=== PATIENT | female | born 1985 | race Caucasian/White ===

== ENCOUNTER 2018-12-02 21:02 | Emergency (ER) | payer OTHER ==
[~2018-12-02] VITALS: Ht 162.6 cm; Wt 76.7 kg
[~2018-12-02 21:02] MED LIST: ADDERALL 20 MG20 M1; CELEXA40 MG; CLONAZEPAM 0.50.5 M1 PO; IBUPROFEN 600600 M1 PO; NAPROSYN500 M1 PO; NORCO 5-325 TA1 EACH PO; ROBAXIN 750 MG750 M1 PO; VENTOLIN HFA 1818 GM INH; WELLBUTRIN 75 M75 M1; ZPAK PO
[2018-12-02] MEDS ORDERED: CUBICIN RF500 MG IV (21:11)
[2018-12-02] MEDS ORDERED: WELLBUTRIN 75 M75 M1 PO (21:13)
[2018-12-02] MEDS ORDERED: CLONAZEPAM 1 MG1 M1 PO (21:15)
[2018-12-02 21:40] LABS: ABSOLUTE EOSINOPHILS 0.2 thou/uL (0.0-0.7); ABSOLUTE LYMPHOCYTES 3.6 thou/uL (0.8-5.3); ABSOLUTE MONOCYTES 0.6 thou/uL (0.0-1.2); ABSOLUTE NEUTROPHILS 6.3 thou/uL (1.6-8.1); BASOPHILS 0.3 %; EOSINOPHILS 1.5 %; HEMATOCRIT 38.7 % (37.0-47.0); HEMOGLOBIN 13.3 gm/dL (12.0-15.0); LYMPHOCYTES 33.8 %; MCH 31.6 pg (26.0-34.0); MCHC 34.4 g/dL (28.0-37.0); MCV 91.8 fL (80.0-100.0); MONOCYTES 5.4 %; MPV 6.6 fl. (7.2-11.1); NUCLEATED RBCS 0 /100WBC; PLATELET COUNT* 288 thou/uL (150-400); RBC 4.21 mil/uL (4.20-5.00); RDW-CV 12.4 % (10.5-14.5); WBC 10.6 thou/uL (4.0-11.0)
[2018-12-02 21:49] LABS: INR 1.1; PROTIME 10.8 Seconds (9.20-11.50)
[2018-12-02 21:54] LABS: ANION GAP 8 mmol/L (7-16); BUN 16 mg/dL (7-18); CALCIUM 8.9 mg/dL (8.5-10.1); CHLORIDE 105 mmol/L (98-107); CO2 29 mmol/L (21-32); CREATININE 0.9 mg/dL (0.6-1.3); GLUCOSE 101 mg/dL (70-99); POTASSIUM 4.3 mmol/L (3.5-5.1); SODIUM 142 mmol/L (136-145); TROPONIN-I LEVEL <0.06 ng/mL (<0.06)
[2018-12-02 21:56] LABS: ALBUMIN 3.5 g/dL (3.4-5.0); ALKALINE PHOSPHATASE 81 U/L (46-116); NT-PRO BRAIN NAT PEPTIDE 38 pg/mL (<300); SGOT 12 U/L (15-37); SGPT 18 U/L (30-65); TOTAL BILIRUBIN 0.3 mg/dL (<0.1-1.0); TOTAL PROTEIN 7.3 g/dL (6.4-8.2)
[2018-12-02 23:06] LABS: URINE BILIRUBIN NEGATIVE (Negative); URINE BLOOD NEGATIVE (Negative); URINE CLARITY CLEAR; URINE COLOR YELLOW; URINE GLUCOSE-RANDOM NEGATIVE (Negative); URINE KETONES NEGATIVE (Negative); URINE LEUKOCYTES-REFLEX NEGATIVE (Negative); URINE NITRITE-REFLEX NEGATIVE (Negative); URINE PROTEIN NEGATIVE (Negative); URINE SPECIFIC GRAVITY >= 1.030 (1.005-1.030); URINE UROBILINOGEN 0.2 E.U./dl (0.2-1.0)
[2018-12-02 23:12] LABS: AMP/METHAMP POSITIVE (Negative); BARBITURATES Negative (Negative); BENZODIAZEPINES Negative (Negative); COCAINE Negative (Negative); METHADONE Negative (Negative); OPIATES Negative (Negative); PCP Negative (Negative); THC Negative (Negative)
[2018-12-03 00:58] VITALS: BP 133/91
--- NOTE | 2018-12-03 15:06 | EKG ---
[place] [address] ELECTROCARDIOGRAM REPORT Name: KIMI MERCADO Room: [facility]#: [id number] Admission: 12/02/18 Attend Phys: Discharge: 12/03/18 Date of : 83 Report #: [id number] THIS REPORT FOR: //name// [facility] ED Test Date: 2018-12-02 Test Time: 21:09:20 Pat Name: KIMI MERCADO Department: Room: Gender: F Printing Mechanist: MATTHEW : 1985 Requested By: Nancy Maza Order Number: [id number] MD: Jay Keating Measurements Intervals [place] Rate: 87 P: 33 UT: 167 QRS: 19 QRSD: 94 T: 51 QT: 372 QTc: 448 Interpretive Statements Sinus rhythm Compared to ECG 06/04/2015 00:40:19 First degree AV block no longer present Electronically Signed On 12-03-2018 15:05:53 CDT by Jay Keating [email or web address] <ELECTRONICALLY SIGNED> By: Jay Keating MD, [facility] 12/03/18 1505 D: [id number] Jay Keating MD, FACC /EPI
== END 2018-12-03 00:59 | disposition home or self-care (01) ==
LOC: M.ERS 21:02
PROVIDERS: Emergency Medicine
DX: R07.89 Other chest pain (principal); Z90.49 Acquired absence of other specified parts of digestive tract

== ENCOUNTER 2019-11-28 19:34 | Emergency (ER) | payer OTHER ==
[~2019-11-28] VITALS: Ht 162.6 cm; Wt 81.7 kg
[~2019-11-28 19:34] MED LIST changes: +CLONAZEPAM 1 MG1 M1 PO; +CUBICIN RF500 MG IV; +WELLBUTRIN 75 M75 M1 PO
[2019-11-28] MEDS ORDERED: CYMBALTA30 MG PO (19:50)
[2019-11-28] MEDS ORDERED: CYMBALTA60 MG PO (19:50)
[2019-11-28 20:13] LABS: URINE BILIRUBIN NEGATIVE (Negative); URINE BLOOD TRACE (Negative); URINE CLARITY CLEAR; URINE COLOR YELLOW; URINE GLUCOSE-RANDOM NEGATIVE (Negative); URINE KETONES NEGATIVE (Negative); URINE LEUKOCYTES-REFLEX NEGATIVE (Negative); URINE NITRITE-REFLEX NEGATIVE (Negative); URINE PROTEIN NEGATIVE (Negative); URINE SPECIFIC GRAVITY >= 1.030 (1.005-1.030); URINE UROBILINOGEN 0.2 E.U./dl (0.2-1.0)
[2019-11-28 20:20] LABS: INFLUENZA A ANTIGEN Negative (Negative); INFLUENZA B ANTIGEN Negative (Negative)
[2019-11-28 21:49] VITALS: BP 136/90
== END 2019-11-28 21:51 | disposition home or self-care (01) ==
LOC: M.ERS 19:34
PROVIDERS: Physician Assistant
DX: B34.9 Viral infection, unspecified (principal); Z90.49 Acquired absence of other specified parts of digestive tract; Z88.1 Allergy status to other antibiotic agents

== ENCOUNTER 2021-05-22 18:22 | Emergency (ER) | payer OTHER ==
[~2021-05-22] VITALS: Ht 162.6 cm; Wt 81.7 kg
[~2021-05-22 18:22] MED LIST changes: +CYMBALTA30 MG PO; +CYMBALTA60 MG PO
[2021-05-22] MEDS ORDERED: CITALOPRAM HBR40 MG PO (18:40)
[2021-05-22 19:25] VITALS: BP 150/94
== END 2021-05-22 19:25 | disposition home or self-care (01) ==
LOC: M.ERS 18:22
DX: S93.402A Sprain of unspecified ligament of left ankle, initial encounter (principal); F90.9 Attention-deficit hyperactivity disorder, unspecified type; F32.9 Major depressive disorder, single episode, unspecified; F41.9 Anxiety disorder, unspecified; Z79.899 Other long term (current) drug therapy; Z90.49 Acquired absence of other specified parts of digestive tract; Z88.1 Allergy status to other antibiotic agents; W19.XXXA Unspecified fall, initial encounter; Y93.89 Activity, other specified; Y92.89 Other specified places as the place of occurrence of the external cause; Y99.8 Other external cause status